=== PATIENT | male | born 1995 | race Caucasian/White ===

== ENCOUNTER 2023-07-08 20:29 | Emergency (ER) | payer OTHER, SELFPAY ==
--- NOTE | 2023-07-08 20:29 | XRR_ITS ---
PROCEDURE INFORMATION: Exam: XR Left Hand Exam date and time: 07/08/2023 8:58 PM Age: 28 years old Clinical indication: Injury or trauma; Other: Laceration to lt palm; Work related; Hand; Left TECHNIQUE: Imaging protocol: Radiologic exam of the left hand. Views: 3 or more views. COMPARISON: No relevant prior studies available. FINDINGS: Bones/joints: Normal. Soft tissues: Normal. XR/XR hand LT min 3V* [id number] IMPRESSION: 1. No acute findings. 2. No radiopaque foreign body.
[2023-07-08 20:37] VITALS: BP 118/75; PULSE 76; RESP 16; TEMP 36.6; O2SAT 98; BMI 26.2
--- NOTE | 2023-07-08 20:55 | PC.NURSE ---
Wound irrigated/cleansed with normal saline and betadine. Pt tolerated well
--- NOTE | 2023-07-08 21:11 | ED_ITS ---
Documented by User: FLORA Cleveland 07/08/23 21:43 HPI - Wound/Laceration General: Chief Complaint: Wound/Laceration Stated Complaint: right hand injury Time Seen by Provider: 07/08/23 20:31 Source: patient Mode of arrival: ambulatory Limitations: no limitations History of Present Illness: Patient is a 28-year-old male who presents to ED today for evaluation of a laceration to his left hand that he sustained just prior to arrival while at work. 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 Last tetanus is unknown. Onset (ago): hour(s) Extremity Location: Left: hand Place: work Patient tetanus UTD: No Context: accidental Associated symptoms: Reports no associated symptoms Treatments prior to arrival: bandage Review of Systems Musc: Reports: extremity pain Skin/Breast: Reports: other (laceration L hand) Neuro: Denies: numbness in extremities, weakness in extremities or sensory changes Physical Exam Const: COMMON NORMALS: no acute distress, average body habitus, patient oriented x3, no limitations, healthy appearing, alert and well nourished Extremity: COMMON NORMALS: full ROM and capillary refill normal GENERAL: Yes normal exam except as noted LEFT UPPER EXTREMITY: Yes hand & digits Left hand and digits: Yes inspection (laceration proximal L palm; no tendon involvement ), Yes ROM (normal), Yes neurovascular exam (normal) and Yes tendon exam (normal) Neuro: COMMON NORMALS: patient oriented x3, moves all extremities, no focal motor deficits and no sensory deficits noted SENSORIUM/ORIENTATION: Yes alert Course ED course: XR negative. Tetanus updated. Wound copiously irrigated and documented as repaired. Dr. Galeano performed laceration repair. Please see his procedure note. Return precautions given. Vital Signs: Vital signs: Vital Signs Temperature 97.9 F 07/08/23 20:37 Pulse Rate 76 07/08/23 20:37 Respiratory Rate 16 07/08/23 20:37 Blood Pressure 118/75 07/08/23 20:37 Pulse Oximetry 98 07/08/23 20:37 Oxygen Delivery Me thod Room Air 07/08/23 20:37 MDM - Wound/Laceration Medical Decision Making XR negative. Tetanus updated. Wound copiously irrigated and documented as repaired. Dr. Galeano performed laceration repair. Please see his procedure note. Return precautions given. Differential Diagnosis Likely laceration Medical Records I reviewed the patient's medical records. 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 Documented by User: Pooja Galeano MD 07/08/23 21:39 HPI - Wound/Laceration General: Chief Complaint: Wound/Laceration Stated Complaint: right hand injury Time Seen by Provider: 07/08/23 20:31 Procedures Laceration Laceration 1: Site: hand Side (If applicable): left Size (cm): 4 Description: linear Depth: simple, single layer Local Anesthetic: lidocaine 1% Amount of anesthesia used (mL): 8 Pre-repair: wound explored, irrigated extensively and deep structures intact Skin layer closed with: nylon Size (cm): 5-0 Number of sutures: 5 Technique: simple, interrupted Course Vital Signs: Vital signs: Vital Signs Temperature 97.9 F 07/08/23 20:37 Pulse Rate 76 07/08/23 20:37 Respiratory Rate 16 07/08/23 20:37 Blood Pressure 118/75 07/08/23 20:37 Pulse Oximetry 98 07/08/23 20:37 Oxygen Delivery Me thod Room Air 07/08/23 20:37 MDM - Wound/Laceration Medical Decision Making I saw patient with midlevel I did repair his laceration and laceration to the palm of his left hand no tendon involvement he is to return in 1 week for suture removal area was very clean x-ray showed no acute abnormalities Discharge Plan Discharge Patient Disposition: Home Clinical Impression: Laceration of hand, left Condition: Stable Discharge Orders: Discharge ED (Routine); Ordered 07/08/23 Ordered By: Pooja Galeano Referrals: Richard Ross MD [Primary Care Provider] - 4-7 days Discharge Diet: Advance as tolerated Discharge Activity: Resume usual activity Patient Instructions: Care For Your Stitches (ED), Laceration (ED) Coding Level of Care 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
[2023-07-08] MEDS: tetanus-dipt-pertussis 0.5 mL SDV IM (21:39)
[2023-07-08 22:20] VITALS: BP 118/75; PULSE 76; RESP 16; TEMP 36.6; O2SAT 98
== END 2023-07-08 22:24 | disposition home or self-care (01) ==
PROVIDERS: Emergency Provider Physician Assistant; PCP Family Medicine
DX: S61.412A Laceration without foreign body of left hand, initial encounter (principal); W26.0XXA Contact with knife, initial encounter; Z23 Encounter for immunization
CPT/HCPCS: 12002; 73130; 90471; 90715; 99283